=== PATIENT | male | born 1975 ===

== ENCOUNTER 2021-08-12 05:45 | Day surgery (SDC) | payer OTHER ==
[2021-08-12] MEDS ORDERED: PERCOCET 5-3251 EACH PO (15:19)
== END 2021-08-12 22:20 | disposition home or self-care (01) ==
LOC: CIR.AMB 05:45
PROVIDERS: ATTEND Surgery
DX: K64.2 Third degree hemorrhoids (principal); K62.5 Hemorrhage of anus and rectum; K62.89 Other specified diseases of anus and rectum; Z20.822 Contact with and (suspected) exposure to COVID-19; Z88.6 Allergy status to analgesic agent; J45.909 Unspecified asthma, uncomplicated